=== PATIENT | male | born 1960 | race Two or more races ===

== ENCOUNTER 2024-06-21 12:50 | Emergency (ER) | payer MEDICAID, SELFPAY ==
[2024-06-21 12:52] VITALS: BMI 28.1
[2024-06-21 13:01] VITALS: BP 161/69; PULSE 81; RESP 18; TEMP 36.7; O2SAT 98
--- NOTE | 2024-06-21 13:20 | XR_ITS ---
EXAMINATION: Ankle, left 3 views . Technique: Ankle AP, oblique, lateral 3 views Date and time of exam: June 21, 2024 1335 hrs. Indications: Injury to the ankle today, ankle pain. Findings: Moderate osteoarthritis tibiotalar joint No fracture or dislocation Impression: No fracture or dislocation
--- NOTE | 2024-06-21 13:20 | XR_ITS ---
Examination: Foot, left, 3 views Technique: AP, oblique, lateral views foot, 3 views Date and time of exam: June 21, 2024 1335 hrs. Indications: Painful today, foot pain Findings: No acute fracture No dislocation No foreign body Impression: No acute fracture
--- NOTE | 2024-06-21 14:05 | EDNOTE_ITS ---
<Statement entered by Saira Wagoner MD - 06/21/24 16:04> As co-signing physician, I was present and available for consult prn. I concur with the plan and care as documented by the midlevel provider. Lower Extremity Injury RME/HPI General Chief Complaint: Extremity Injury, Lower Stated Complaint: LEFT FOOT INJURY Time Seen by Provider: 06/21/24 13:19 Arrival date/time: 06/21/24 12:50 63-year-old male presents emergency department complaints of left foot pain and left ankle pain after twisting his ankle today Limitations: no limitations Related Data Previous Rx's ?Medication ?Instructions ?Recorded hydrocodone 5 mg-acetaminophen 325 1 tab PO TID PRN pa in #15 tabs 06/19/21 mg tablet ibuprofen 600 mg tablet 600 mg PO TID PRN pain #30 t abs 02/19/23 levofloxacin 500 mg tablet 500 mg PO Q24H #4 tabs 0406/06 ibuprofen 800 mg tablet 800 mg PO TID PRN pain #30 t abs 06/21/24 Allergies Allergy/AdvReac Type Severity Reaction Status Date / Time No Known Allergies Allergy Verified 06/21/24 12:53 Review of Systems Review of Systems Systems Reviewed: All systems reviewed, normal except as documented Constitutional Constitutional: Reports system reviewed and no additional complaints, except as documented, Denies fever(s) and Denies headache(s) Eyes Eyes: Reports system reviewed and no additional complaints, except as documented and Denies blurry vision ENT Ears, Nose, Mouth, and Throat: Reports system reviewed and no additional complaints, except as documented, Denies headache(s), Denies nasal congestion and Denies nasal discharge Cardiovascular Cardiovascular: Reports system reviewed and no additional complaints, except as documented, Denies chest pain and Denies dyspnea Respiratory Respiratory: Reports system reviewed and no additional complaints, except as documented, Denies chest congestion, Denies cough and Denies dyspnea Gastrointestinal Gastrointestinal: Reports system reviewed and no additional complaints, except as documented and Denies abdominal pain Musculoskeletal Musculoskeletal: Reports abnormal gait, Reports arthralgias, Denies deformity, Denies numbness, Reports stiffness and Denies tingling Integumentary/Breasts Skin/Breast: Reports system reviewed and no additional complaints, except as documented and Denies rash Neurologic Neurologic: Reports system reviewed and no additional complaints, except as documented, Reports as per HPI, Reports abnormal gait, Denies headache(s), De nies numbness and Denies tingling Past Medical History Past Medical History CARDIAC: Negative Cardiac Disorders or Congestive Heart Failure RESPIRATORY: Positive Asthma; Negative Chronic Obstructive Pulmonary Disease (COPD) GENITOURINARY: Negative Renal Disease ENDOCRINE: Negative Diabetes Mellitus Type 1 or Diabetes Mellitus Type 2 HEMATOLOGIC: Negative Sickle Cell Disease Social History SMOKING STATUS: Never smoker SUBSTANCE USE: does not use ED Exam General Limitations: Present no limitations General appearance: Present alert and in no apparent distress Head Head exam: Present atraumatic Eye Eye exam: Present normal appearance, PERRL and EOMI ENT ENT exam: Present normal exam, normal oropharynx and mucous membranes moist Neck Neck exam: Present normal inspection, full ROM and trachea midline Chest Chest inspection: Present normal inspection and symmetric chest wall rise Respiratory Respiratory exam: Present normal lung sounds bilaterally Cardiovascular Cardiovascular exam: Present regular rate, normal rhythm and normal heart sounds Abdominal Exam Abdominal exam: Present soft and normal bowel sounds Extremities Exam Extremities exam: Present full ROM, tenderness, normal capillary refill and joint swelling; Absent pedal edema or calf tenderness Back Exam Back exam: Present normal inspection and full ROM Neurological Exam Neurological exam: Present alert, oriented X3 and CN II-XII intact Psychiatric Psychiatric exam: Present normal affect and normal mood Skin Skin exam: Present warm, dry, intact and normal color Course Quality Measures none Orders Category Date Time Status Crutches .NOW Care 06/21/24 14:06 Completed matt wrap [Splint / Immobilizer] STAT Care 06/21/24 14:06 Completed XR ankle comp LT min 3V Stat Exams 06/21/24 13:20 Completed XR foot comp LT min 3V Stat Exams 06/21/24 13:20 Completed Vital Signs Vital signs: Vital Signs Temperature 98.0 F 06/21/24 13:01 Pulse Rate 81 06/21/24 13:01 Respiratory Rate 18 06/21/24 13:01 Blood Pressure 161/69 H 06/21/24 13:01 Pulse Oximetry (%) 98 06/21/24 13:01 Oxygen Delivery Method Room Air 06/21/24 13:01 O2 saturation 98% room air WNL Extremity Injury, Lower MDM Narrative MDM Narrative:: 63-year-old male presents emergency department complaints of left foot pain and left ankle pain after twisting his ankle today On exam patient has tenderness and pain to the left ankle no deformity noted Imaging obtained no acute fracture dislocation noted Patient given crutches and placed in Matt wrap Patient discharged home in no distress to follow-up with primary care doctor in the next 24 to 48 hours and for any worsening symptoms to return to the ER immediately Patient data External records reviewed:: [facility] previous records Clinical information provided by:: patient Social determinants that could affect healthcare access:: none Patient has the following chronic illnesses:: None How is presenting disease/condition affected by chronic disease/condition?: no chronic disease Evaluation data The following diagnostics were reviewed and interpreted by me:: radiology exam(s) Lab and/or radiology exams considered but not ordered:: Radiology obtain Interpretation Summary: Reviewed by me Medications / Prescriptions Medications or Prescriptions considered but not ordered:: Given Medication administrations:: Given Consultations Consultation(s) initiated? (list below): No Diagnosis Extremity Injury, Lower Differential Diagnosis: ankle sprain and strain and ankle fracture Most likely diagnosis given after review of the tests above:: left ankle sprain Admission Indicated Admission indicated?: not indicated Admission Request Was there a request for admission?: No Disposition Plan Disposition Plan: Discharge Discharge Attestation Discharge Attestation: The patient and all family members were given an opportunity to ask questions and understood the discharge instructions. Discharge instructions specifically effects, indications for sooner follow up or return to the emergency department, and the expected course of current diagnosis. Patient condition: Stable Discharge Plan Plan Patient Disposition: HOME (Self Care) Disposition Comment: stable Prescriptions/Referrals Prescriptions/Med Rec: New ibuprofen 800 mg tablet 800 mg PO TID PRN (Reason: pain) Qty: 30 0RF No Action hydrocodone-acetaminophen 5-325 mg tablet 1 tab PO TID MDD 4g APAP PRN (Reason: pain) Qty: 15 0RF ibuprofen 600 mg tablet 600 mg PO TID PRN (Reason: pain) Qty: 30 0RF levofloxacin 500 mg tablet 500 mg PO Q24H Qty: 4 0RF Referrals: No Primary/Family,Physician [Primary Care Provider] - 06/22/24 Problem List Clinical Impression: Ankle sprain and strain Patient/Caregiver Discharge Instructions Additional Instructions: Please follow up with your primary care doctor in the next 24-48hrs for any worsening symptoms return here immediately Print Language: Thai Stand Alone Forms: [facility] Award Info., Patient Portal Info Letter PA/MICHAEL Supervising Physician PA/FINAL FINISHER FORGING DIES Supervising Physician: dr wagoner
== END 2024-06-21 15:04 | disposition home or self-care (01) ==
PROVIDERS: Emergency Provider Emergency Medicine
DX: S93.402A Sprain of unspecified ligament of left ankle, initial encounter (principal); S96.912A Strain of unspecified muscle and tendon at ankle and foot level, left foot, initial encounter; X50.1XXA Overexertion from prolonged static or awkward postures, initial encounter
CPT/HCPCS: 73610; 73630; 99283